=== PATIENT | male | born 1950 | race Caucasian/White ===

== ENCOUNTER → 2016-12-20 | Day surgery (SDC) | payer OTHER ==
[~2016-12-20] MED LIST: Lactated Ringers 1,000 ML IV SCH; Midazolam 1 MG/ML 2 ML SDV ONE; Propofol 200 MG/20 ML SDV ONE; fentaNYL 100 MCG/2 ML SDV ONE
--- NOTE | 2016-12-20 11:55 | OR ---
DATE OF PROCEDURE: 12/20/2016 PREOPERATIVE DIAGNOSIS: Colon cancer screening. POSTOPERATIVE DIAGNOSIS: Moderate-sized polyp, 25 cm from the anal verge. PROCEDURE: Colonoscopy to but not into the cecum, with snare cautery polypectomy. SURGEON: Flaco Myers MD. ANESTHESIA: IV anesthesia with monitored anesthesia care. INDICATION: This 66-year-old white male is referred for a colonoscopy. He says his last colonoscopic exam was done between 10 and 11 years ago. I counseled him for the procedure, including the risks and alternatives, and he gave his informed consent to proceed. DESCRIPTION OF PROCEDURE: The patient was placed in the left lateral decubitus position. IV anesthesia was administered by the Anesthesia Service. Time-out was held. A rectal exam was performed, which was unremarkable. The flexible video Olympus colonoscope was introduced through his anus, up his rectum and out his colon all the way to but not into the cecum. We could view in the cecum. The scope was slowly withdrawn, examining the mucosa throughout. No mucosal abnormalities were noted until we reached 25 cm from the anal verge. Here, a moderate-sized polyp was seen. The snare was passed about its base. It was elevated up away from the bowel wall and amputated as electrocautery was applied. The polyp was aspirated up onto the scope, and the scope was removed with the polyp then retrieved from the end of the scope. The scope was reintroduced back to the polypectomy site. It was then slowly withdrawn, examining the remainder of the colon. No additional mucosal abnormalities were noted. The scope was retroflexed in the rectum with the distal rectum appearing unremarkable. The scope was straightened and removed. He tolerated the procedure well. Flaco Myers MD /[id number]
== END ==
LOC: JP.SDS 07:49
PROVIDERS: ATTEND Surgery
DX: Z12.11 Encounter for screening for malignant neoplasm of colon (principal); D12.6 Benign neoplasm of colon, unspecified; I10 Essential (primary) hypertension; G47.33 Obstructive sleep apnea (adult) (pediatric); E11.9 Type 2 diabetes mellitus without complications; Z79.4 Long term (current) use of insulin
CPT/HCPCS: 45385; 88305; J2250; J2704; J3010; J7120

== ENCOUNTER 2019-12-31 06:35 | Day surgery (SDC) | payer MEDICARE, BC ==
[2019-12-31] MEDS ORDERED: Sodium Chloride 0.9% 1,000 ML IV SCH (07:00)
[2019-12-31] MEDS ORDERED: Midazolam 1 MG/ML 2 ML SDV ONE (07:33)
[2019-12-31] MEDS ORDERED: fentaNYL 100 MCG/2 ML SDV ONE (07:33)
[2019-12-31] MEDS ORDERED: Propofol 200 MG/20 ML SDV ONE ×2 (07:33→08:44)
--- NOTE | 2019-12-31 11:08 | OR ---
DATE OF PROCEDURE: 12/31/2019 SURGEON: Sridhar Parsons MD PROCEDURE: Colonoscopy. FINDINGS: Poor colon prep. COMPLICATION: None. AUDITOR: None. PREOPERATIVE DIAGNOSIS: Screening colonoscopy. POSTOPERATIVE DIAGNOSIS: Screening colonoscopy. RISKS: Risks, benefits, alternatives, and limitations including, but not limited to infection, bleeding, and perforation were explained to the patient and wished to proceed. PROCEDURE IN DETAIL: The patient was placed in left lateral decubitus position. Digital rectal exam was performed without abnormality. Scope was introduced and advanced atraumatically to the ileocecal valve. The scope was unable to be advanced into the cecum itself. It was advanced to that level and the cecum could be inspected but not entered due to the patient's body habitus. This is consistent with his previous colonoscopies. Scope was brought back to the remainder of the colon. Prep was marginal with approximately 80% to 90% of the luminal surface could be seen. No polyps. No masses. No old or new blood. No abnormalities on retroflexion. The patient tolerated the procedure well. Greater than 8 minutes was spent removing the scope. The patient will be counseled on the recommendations of barium enema. Sridhar Parsons MD /[id number]
--- NOTE | 2019-12-31 11:15 | OR ---
DATE OF PROCEDURE: 12/31/2019 SURGEON: Sridhar Parsons MD ADDENDUM: The patient was recommended a barium enema to follow up on his incomplete colonoscopy. The patient has politely declined. He has had this before and recommendations were given at that time and he has declined them again. We discussed risks, benefits, alternatives, and limitations of not performing the barium enema. Sridhar Parsons MD /[id number]
== END 2019-12-31 11:00 | disposition home or self-care (01) ==
LOC: JP.SDS 06:35
PROVIDERS: ATTEND Surgery
DX: Z12.11 Encounter for screening for malignant neoplasm of colon (principal); I10 Essential (primary) hypertension; E66.9 Obesity, unspecified; E11.9 Type 2 diabetes mellitus without complications; Z68.45 Body mass index [BMI] 70 or greater, adult
CPT/HCPCS: J2250; J2704; J3010; J7030